=== PATIENT | male | born 1950 | race Caucasian/White ===

== ENCOUNTER 2022-09-29 14:03 | Inpatient (IN) ==
--- NOTE | 2022-09-29 14:35 | Emergency Department Note ---
Impression & Plan Hypoxia, Fluid overload, Elevated troponin I level, Hyponatremia ED Provider Note Provider: Donn Brewster MD DATE OF SERVICE: 09/29/2022 CHIEF COMPLAINT: Leg swelling HISTORY OF PRESENT ILLNESS: Patient is a 72-year-old gentleman presenting with family today reporting swelling of his legs up into his abdomen and chest as well as shortness of breath with ambulating. He states that he is not able to walk today. States this is been developing over days to weeks at least. No trauma or falls reported. States he has pain where the swelling is but denies significant chest pain. No fever or cold symptoms reported. Patient is a smoker. Patient has not seen a doctor in more than a decade and denies any known medical problems or current medications. Patient states he does drink some alcohol daily. Denies history of withdrawal. REVIEW OF SYSTEMS: A total of 10 review of systems was obtained and negative except as stated above in the HPI. 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 NECK: Trachea midline. Supple. ENT: Mucous membranes moist and slightly purple in nature. LUNGS: Airway patent. No retractions. Breath sounds clear with good air entry bilaterally. HEART: Regular rate and rhythm. No chest wall tenderness ABDOMEN: Soft and non-tender, without guarding or rebound. Also some mild abdominal wall edema noted without appreciable fluid wave. SKIN: Warm dry with some scaling plaques in the bilateral feet without significant erythema. There are some slight mottling of the distended swollen skin across the knee area bilaterally. EXTREMITIES: 3-4+ edema from the bilateral feet extending towards the abdomen. NEUROLOGICAL: No focal deficits. No aphasia. No facial droop or slurred speech. EK bpm sinus tachycardia. No PVC or PAC. Right axis with an incomplete right bundle branch block is noted. No acute ST segment elevation with some inferior lateral T wave ST changes. CONTINUOUS CARDIAC MONITORING: was ordered and showed a heart rate of 80s-90s bpm in normal sinus rhythm Patient's laboratory studies and imaging reviewed. Differential includes Infection, dehydration, metabolic abnormality, hypo/hyperglycemia, electrolyte disturbance, anemia, hypoxia, cardiac sources, intracerebral event, toxicologic, neurologic, as well as other pathologies. IMPRESSION/MEDICAL DECISION MAKING: Patient has not seen a doctor in many years and now with significant swelling of the lower extremities into the abdomen as well as noted hypoxia. Given oxygen supplementation at 6L with unchanged mild chronic cough. Shortness of breath and the swelling is concerning for the onset of fluid overload. Question whether this is heart related versus liver related or lower likelihood renally related. Labs will be completed as well as x-ray. Lower suspicion for infectious source at this time. No trauma history or syncope. Symmetric swelling and generalized edema seems very atypical and I have a lower suspicion for PE at this point. Chest x-ray per radiology report shows some pulmonary edema and questions are right airspace opacity. Again not having significant infectious symptoms such as fever and question of his more asymmetric pulmonary edema. As such we will defer any antibiotics. Blood work without significant anemia, thrombocytopenia, or leukocytosis. Patient does have evidence of some hyponatremia of 127. INR 1.3 with a bilirubin of 1.3, AST of 23, and ALT of 11. Do not believe this represents acute hepatitis or liver failure. Albumin normal at 3.5. The hyponatremia with a severely elevated BNP and his clinical presentation seems consistent likely with heart failure and cardiac fluid overload. No evidence of acute STEMI not having active chest pain and low suspicion at this point for acu te NM. Mild troponin elevation likely more demand or could be indicative of past event. Given some Lasix here. Stable renal function with a creatinine of 1.08. Discussed with patient and family at bedside recommend further care here at the hospital given his hypoxia for diuresis and further cardiac evaluation. DIAGNOSIS: Hypoxia, fluid overload, hyponatremia, elevated troponin DISPOSITION: Hospitalist will evaluate Patient was agreeable with this plan. Critical Care I have personally spent 34 minutes of critical care time in the direct management of this patient. This includes bedside care, interpretation of diagnostic studies, and testing, discussion with consultants, patient, and family members, and other required patient management activities. These 34 minutes is in excess of all separately billable procedures. Past Med/Surg History Medical History No known health problems Surgical History No history of previous surgery Social History Smoking Status: Current every day smoker Hx Alcohol Use: Yes Hx Substance Use: No Preferred Language: Indonesian Communication Ability: Effective Architectural Designer Required: No Beliefs That Will Affect Care: None Current Living Situation: Family Current Living Situation Comment: lives with brother Feels Safe at Home: Yes Safety Concerns: Feels Safe At This Time Assistive Devices: Glasses Allergies Allergies Allergy/AdvReac Type Severity Reaction Status Date / Time bee venom protein (honey bee) Allergy Hives Unverified 09/29/22 15:30 onion Allergy Unknown Unverified 09/29/22 15:30 Home Meds Home Medications Medication Instructions Recorded Confirmed No Known Home Medications 09/29/22 09/29/22 Results & Data (ED) Vital Signs Vital Signs - 24 hr 09/29/22 14:08 09/29/22 14:21 09/29/22 14:22 Temperature 36.8 C Temperature Source Temporal Artery Scan Pulse Rate 105 H 101 H Pulse Rate from SpO2 Sensor 99 H Respiratory Rate 16 26 H Respiratory Effort / Characteristics Non-Labored Respiratory Depth Normal Blood Pressure 125/85 143/98 H Blood Pressure Mean 98 113 Pulse Oximetry 77 L 91 Oxygen Delivery Method Room Air Nasal Cannula Oxygen Flow Rate 5 Sepsis Recent Fever Within 48 Hours No Sepsis New/Unexplained Change in Mental Status No Sepsis Action Taken by Nursing No Action Required 09/29/22 14:22 09/29/22 14:30 09/29/22 14:30 Temperature Temperature Source Pulse Rate 99 H 99 H Pulse Rate from SpO2 Sensor 99 H 99 H Respiratory Rate 25 H 28 H Respiratory Effort / Characteristics Respiratory Depth Blood Pressure 131/88 Blood Pressure Mean 102 Pulse Oximetry 94 96 Oxygen Delivery Method Nasal Cannula Nasal Cannula Oxygen Flow Rate 5 5 Sepsis Recent Fever Within 48 Hours Sepsis New/Unexplained Change in Mental Status Sepsis Action Taken by Nursing 09/29/22 15:00 09/29/22 15:00 09/29/22 15:30 Temperature Temperature Source Pulse Rate 91 H Pulse Rate from SpO2 Sensor 90 Respiratory Rate 27 H Respiratory Effort / Characteristics Respiratory Depth Blood Pressure 130/91 128/90 Blood Pressure Mean 104 102 Pulse Oximetry 100 Oxygen Delivery Method Nasal Cannula Oxygen Flow Rate 5 Sepsis Recent Fever Within 48 Hours Sepsis New/Unexplained Change in Mental Status Sepsis Action Taken by Nursing 09/29/22 15:30 Temperature Temperature Source Pulse Rate 88 Pulse Rate from SpO2 Sensor 88 Respiratory Rate 10 L Respiratory Effort / Characteristics Respiratory Depth Blood Pressure Blood Pressure Mean Pulse Oximetry 95 Oxygen Delivery Method Nasal Cannula Oxygen Flow Rate 5 Sepsis Recent Fever Within 48 Hours Sepsis New/Unexplained Change in Mental Status Sepsis Action Taken by Nursing Laboratory Data Result diagrams: 09/29/22 14:41 09/29/22 19:32 Lab Results 09/29/22 09/29/22 09/29/22 Range/Units 14:41 14:41 14:41 WBC 6.61 (4.8-10.8) K/ul RBC 4.67 (4.63-6.08) M/uL Hgb 16.6 (14.0-18.0) g/dl Hct 47.6 (40.1-51.0) % MCV 101.9 H (80.0-100.0) fL MCH 35.5 H (25.0-34.0) pg MCHC 34.9 (32.0-36.0) g/dL RDW Std Deviation 53.9 H (36.4-46.3) fL RDW Coeff of Gail 14.6 H (11.5-14.5) % Plt Count 139 (130-400) K/uL MPV 11.8 (9.4-12.4) fL Immature Gran % (Auto) 0.3 % Neut % (Auto) 74.4 % Lymph % (Auto) 12.6 % Iron % (Auto) 11.0 % Eos % (Auto) 0.5 % Baso % (Auto) 1.2 % Neut # (Auto) 4.92 (1.4-6.5) K/uL Lymph # (Auto) 0.83 L (1.2-3.4) K/uL Iron # (Auto) 0.73 (0.24-0.82) K/uL Eos # (Auto) 0.03 (0-0.50) K/uL Baso # (Auto) 0.08 (0-0.2) K/uL Immature Gran # (Auto) 0.02 (0.00-0.02) K/uL PT 13.6 H (9.0-12.0) Seconds INR 1.3 H (0.9-1.1) Sodium 127 L (136-145) mmol/L Potassium 4.7 (3.5-5.1) mmol/L Chloride 91 L (98-107) mmol/L Carbon Dioxide 28 (21-32) mmol/L Anion Gap 8 (3-11) BUN 18 (6-23) mg/dl Creatinine 1.08 (0.6-1.4) mg/dl Est Cr Clr Drug Dosing Not Reportable Est GFR ( Amer) 79.6 ml/min Est GFR (Non-Af Amer) 68.7 ml/min BUN/Creatinine Ratio 16.7 (10-20) Glucose 123 H (70-99(Fasting)) mg/dl Lactate (0.4-2.0) mmol/L Calcium 9.6 (8.5-10.1) mg/dl Magnesium 1.9 (1.7-2.4) mg/dl Total Bilirubin 1.3 H (0.2-1.0) mg/dl AST 23 (13-39) U/L ALT 11 (7-52) U/L Alkaline Phosphatase 83 (34-104) U/L Troponin I High Sens 88.4 H* (0-20) pg/ml B-Natriuretic Peptide (0-100) pg/ml Total Protein 8.1 (6.0-8.3) gm/dl Albumin 3.5 (3.4-5.0) gm/dl Globulin 4.6 H (2.5-4.0) gm/dl Albumin/Globulin Ratio 0.8 L (0.9-2) TSH (0.300-4.500) uIu/ml Ethyl Alcohol mg/dL (<10.0) mg/dl SARS-CoV-2, RNA, NAAT (NEGATIVE) 09/29/22 09/29/22 09/29/22 Range/Units 14:41 14:41 14:41 WBC (4.8-10.8) K/ul RBC (4.63-6.08) M/uL Hgb (14.0-18.0) g/dl Hct (40.1-51.0) % MCV (80.0-100.0) fL MCH (25.0-34.0) pg MCHC (32.0-36.0) g/dL RDW Std Deviation (36.4-46.3) fL RDW Coeff of Gail (11.5-14.5) % Plt Count (130-400) K/uL MPV (9.4-12.4) fL Immature Gran % (Auto) % Neut % (Auto) % Lymph % (Auto) % Iron % (Auto) % Eos % (Auto) % Baso % (Auto) % Neut # (Auto) (1.4-6.5) K/uL Lymph # (Auto) (1.2-3.4) K/uL Iron # (Auto) (0.24-0.82) K/uL Eos # (Auto) (0-0.50) K/uL Baso # (Auto) (0-0.2) K/uL Immature Gran # (Auto) (0.00-0.02) K/uL PT (9.0-12.0) Seconds INR (0.9-1.1) Sodium (136-145) mmol/L Potassium (3.5-5.1) mmol/L Chloride (98-107) mmol/L Carbon Dioxide (21-32) mmol/L Anion Gap (3-11) BUN (6-23) mg/dl Creatinine (0.6-1.4) mg/dl Est Cr Clr Drug Dosing Est GFR ( Amer) ml/min Est GFR (Non-Af Amer) ml/min BUN/Creatinine Ratio (10-20) Glucose (70-99(Fasting)) mg/dl Lactate 1.9 (0.4-2.0) mmol/L Calcium (8.5-10.1) mg/dl Magnesium (1.7-2.4) mg/dl Total Bilirubin (0.2-1.0) mg/dl AST (13-39) U/L ALT (7-52) U/L Alkaline Phosphatase (34-104) U/L Troponin I High Sens (0-20) pg/ml B-Natriuretic Peptide (0-100) pg/ml Total Protein (6.0-8.3) gm/dl Albumin (3.4-5.0) gm/dl Globulin (2.5-4.0) gm/dl Albumin/Globulin Ratio (0.9-2) TSH 3.831 (0.300-4.500) uIu/ml Ethyl Alcohol mg/dL < 10.0 (<10.0) mg/dl SARS-CoV-2, RNA, NAAT (NEGATIVE) 09/29/22 09/29/22 Range/Units 14:41 14:52 WBC (4.8-10.8) K/ul RBC (4.63-6.08) M/uL Hgb (14.0-18.0) g/dl Hct (40.1-51.0) % MCV (80.0-100.0) fL MCH (25.0-34.0) pg MCHC (32.0-36.0) g/dL RDW Std Deviation (36.4-46.3) fL RDW Coeff of Gail (11.5-14.5) % Plt Count (130-400) K/uL MPV (9.4-12.4) fL Immature Gran % (Auto) % Neut % (Auto) % Lymph % (Auto) % Iron % (Auto) % Eos % (Auto) % Baso % (Auto) % Neut # (Auto) (1.4-6.5) K/uL Lymph # (Auto) (1.2-3.4) K/uL Iron # (Auto) (0.24-0.82) K/uL Eos # (Auto) (0-0.50) K/uL Baso # (Auto) (0-0.2) K/uL Immature Gran # (Auto) (0.00-0.02) K/uL PT (9.0-12.0) Seconds INR (0.9-1.1) Sodium (136-145) mmol/L Potassium (3.5-5.1) mmol/L Chloride (98-107) mmol/L Carbon Dioxide (21-32) mmol/L Anion Gap (3-11) BUN (6-23) mg/dl Creatinine (0.6-1.4) mg/dl Est Cr Clr Drug Dosing Est GFR ( Amer) ml/min Est GFR (Non-Af Amer) ml/min BUN/Creatinine Ratio (10-20) Glucose (70-99(Fasting)) mg/dl Lactate (0.4-2.0) mmol/L Calcium (8.5-10.1) mg/dl Magnesium (1.7-2.4) mg/dl Total Bilirubin (0.2-1.0) mg/dl AST (13-39) U/L ALT (7-52) U/L Alkaline Phosphatase (34-104) U/L Troponin I High Sens (0-20) pg/ml B-Natriuretic Peptide 1989 H (0-100) pg/ml Total Protein (6.0-8.3) gm/dl Albumin (3.4-5.0) gm/dl Globulin (2.5-4.0) gm/dl Albumin/Globulin Ratio (0.9-2) TSH (0.300-4.500) uIu/ml Ethyl Alcohol mg/dL (<10.0) mg/dl SARS-CoV-2, RNA, NAAT NEGATIVE (NEGATIVE) Administered Medications Furosemide (Furosemide 40 Mg/4 Ml Vial) 40 mg IV BID SAL Stop: 10/29/22 20:59 Last Admin: 09/29/22 20:25 Dose: 40 mg Documented By: KJS Discontinued Medications Furosemide (Furosemide 40 Mg/4 Ml Vial) 40 mg IV ONE ONE Stop: 09/29/22 15:23 Last Admin: 09/29/22 16:08 Dose: 40 mg Documented By: [id number] Imaging Data Radiologist's Impression: Chest X-Ray 09/29/22 14:22 XR chest 1V portable CLINICAL HISTORY: swelling, donaldson TECHNIQUE: Single frontal radiograph of the chest was obtained. Comparison: Comparison is made to chest radiograph 09/29/2022 FINDINGS: No lines and tubes are seen. Calcified aortic knob is seen with likely cardiomegaly. Prominence and cephalization of the vasculature is seen. Airspace opacity is seen in the right lung. Bilateral small pleural effusions are seen. Small bilateral pleural effusions are seen. IMPRESSION: 1. Right airspace opacity may represent atelectasis, pneumonia, and/or aspiration. 2. Small bilateral pleural effusions. 3. Mild pulmonary edema and cardiomegaly.. ACT 112: Negative or not required by law. Electronically signed by: Juan Koehler M.D. 09/29/2022 2:55 PM Discharge Plan Visit Data Chief Complaint: Swelling/Edema to Extremity Stated Complaint: EXTREME SWELLING, UNABLE TO WALK ED Provider: Donn Brewster Discharge Problem: Hypoxia, Fluid overload, Elevated troponin I level, Hyponatremia Patient Disposition: Admitted As Inpatient Discharge Instructions Interventions: ED Discharge Assessment Last Done: 09/29/22 18:31 : Fluid overload Qualifiers: Hypervolemia type: unspecified Qualified Code(s): E87.70 - Fluid overload, unspecified
[2022-09-29 14:54] LABS: Basophils # (auto) 0.08 K/uL (0-0.2); Basophils % (auto) 1.2 %; Eosinophils # (auto) 0.03 K/uL (0-0.50); Eosinophils % (auto) 0.5 %; Hematocrit (blood only) 47.6 % (40.1-51.0); Hemoglobin 16.6 g/dl (14.0-18.0); Immature Granulocytes # (auto) 0.02 K/uL (0.00-0.02); Immature Granulocytes % (auto) 0.3 %; Lymphocytes # (auto) 0.83 K/uL (1.2-3.4); Lymphocytes % (auto) 12.6 %; Mean Corpuscular Hemoglobin 35.5 pg (25.0-34.0); Mean Corpuscular Hgb Conc 34.9 g/dL (32.0-36.0); Mean Corpuscular Volume 101.9 fL (80.0-100.0); Mean Platelet Volume 11.8 fL (9.4-12.4); Monocytes # (auto) 0.73 K/uL (0.24-0.82); Neutrophils # (auto) 4.92 K/uL (1.4-6.5); Neutrophils % (auto) 74.4 %; Platelet Count 139 K/uL (130-400); RDW Coefficient of Variation 14.6 % (11.5-14.5); RDW Standard Deviation 53.9 fL (36.4-46.3); Red Blood Count 4.67 M/uL (4.63-6.08); White Blood Count 6.61 K/ul (4.8-10.8)
--- NOTE | 2022-09-29 14:57 | XRay Report ---
XR chest 1V portable CLINICAL HISTORY: swelling, donaldson TECHNIQUE: Single frontal radiograph of the chest was obtained. Comparison: Comparison is made to chest radiograph 09/29/2022 FINDINGS: No lines and tubes are seen. Calcified aortic knob is seen with likely cardiomegaly. Prominence and c ephalization of the vasculature is seen. Airspace opacity is seen in the right lung. Bilateral small pleural effusions are seen. Small bilateral pleural effusions are seen. IMPRESSION: 1. Right airspace opacity may represent atelectasis, pneumonia, and/or aspiration. 2. Small bilateral pleural effusions. 3. Mild pulmonary edema and cardiomegaly.. ACT 112: Negative or not required by law. Electronically signed by: Juan Koehler M.D. 09/29/2022 2:55 PM
[2022-09-29 15:09] LABS: INR 1.3 (0.9-1.1); Prothrombin Time 13.6 Seconds (9.0-12.0)
[2022-09-29 15:20] LABS: Alanine Aminotransferase 11 U/L (7-52); Albumin Globulin Ratio 0.8 (0.9-2); Albumin Level 3.5 gm/dl (3.4-5.0); Alkaline Phosphatase 83 U/L (34-104); Anion Gap 8 (3-11); Aspartate Aminotransferase 23 U/L (13-39); BUN Creatinine Ratio 16.7 (10-20); Bilirubin,Total 1.3 mg/dl (0.2-1.0); Blood Urea Nitrogen 18 mg/dl (6-23); Calcium 9.6 mg/dl (8.5-10.1); Carbon Dioxide 28 mmol/L (21-32); Chloride 91 mmol/L (98-107); Est GFR (African American) 79.6 ml/min; Est GFR (Non-African American) 68.7 ml/min; Globulin 4.6 gm/dl (2.5-4.0); Glucose 123 mg/dl (70-99(Fasting)); Magnesium 1.9 mg/dl (1.7-2.4); Potassium 4.7 mmol/L (3.5-5.1); Sodium 127 mmol/L (136-145); Total Protein 8.1 gm/dl (6.0-8.3)
[2022-09-29] MEDS ORDERED: FUROSEMIDE 40 MG/4 ML VIAL IV ONE (15:22)
[2022-09-29 15:30] LABS: Troponin I High Sensitivity 88.4 pg/ml (0-20)
--- NOTE | 2022-09-29 15:45 | History & Physical Report ---
Date of Service September 29, 2022 Assessment & Plan (1) Hyponatremia: Plan: Patient admited with fluid overload and hyponatremia. Hypervolemic hyponatremia Perhaps beer potomania playing a role Will monitor sodium, diurese with lasix. Will ordered RUQ U/S to assess liver, will recheck LFTs will order echo Has signs of liver injury given his elevated INR: 1.3 and eleavted Bilirubin Does not require prednisolone at this moment. (2) Fluid overload: Plan: as above, diurese with lasix may consider adding spironolactone given likely chronic liver injury. (3) Elevated troponin I level: Plan: demand ischemia will monitor (4) Hypoxia: Plan: supplemental oxygen ordered (5) Rash: Plan: likely nrowegian scabies will order permethrin cream and monitor (6) Alcoholism: Plan: will consider adding AWSS if patient is deciding to quit drinking. Will defer to AM team (7) Nicotine addiction: Plan: will order 14 mg of nicotine patch History of Present Illness Chief Complaint: lower extremity edema Primary Care Provider: Donn Brewster This is a pleasant 74 yo male who is an alcoholic. Patient has not seen a provider for almost 10 years. Patient has Past social history of: drinking 6 cans of beer every day for past 15 days without stopping. He reports prior to this, he has been able to stop without going through withdrawal. Patient also reports having a over 50 pack year history of smoking cigarettes. Patient states his brother of alcoholic cirrhosis. Patient arrives to the hospital as he noticed worsening of his lower extremity edema with SOB. Allergies Allergy/AdvReac Type Severity Reaction Status Date / Time bee venom protein (honey bee) Allergy Hives Unverified 09/29/22 15:30 onion Allergy Unknown Unverified 09/29/22 15:30 Home Medications Medication Instructions Recorded Confirmed Type No Known Home Medications 09/29/22 09/29/22 History Past Med/Surg History Medical History No known health problems Surgical History No history of previous surgery Social History Smoking Status: Current every day smoker Hx Alcohol Use: Yes Hx Substance Use: No Preferred Language: Syriac Communication Ability: Effective Jacquard Plate Maker Required: No Beliefs That Will Affect Care: None Current Living Situation: Family Current Living Situation Comment: lives with brother Feels Safe at Home: Yes Safety Concerns: Feels Safe At This Time Assistive Devices: Glasses Review of Systems Constitutional: no fever and no body aches Eyes: no blind spots Ear, Nose, Mouth, Throat: no ear pain Respiratory: + dyspnea and + dyspnea on exertion Cardiovascular: + dyspnea; no chest pain Gastrointestinal: + bloating Genitourinary: no dysuria Musculoskeletal: no back pain Integumentary: + rash (on feet) Neurologic: no gait abnormality Psychiatric: no behavioral changes Endocrine: + fatigue Hematologic / Lymphatic: no easy bleeding Allergy / Immunological: no GI upset with certain foods Physical Exam Constitutional: + disheveled Eyes: PERRL, conjunctivae normal, anicteric sclerae ENMT: external ear and nose normal, oropharynx normal Neck: trachea midline, no thyromegaly Respiratory: Auscultation: + crackles (at bases) Cardiovascular: RRR, no murmur, no edema Gastrointestinal (Abdomen): normal bowel sounds, soft, nontender, no hepatosplenomegaly Musculoskeletal: no cyanosis or clubbing, extremities motor strength 5/5 Skin: + lesion (on feet: scaly, vera, greenish small plaques with papules on feet,) Neurologic: PERRL, EOMI, accommodation nl, no face palsy, no dysarthria Psychiatric: A+Ox3, euthymic affect Lymphatic: no cervical or axillary lymphadenopathy Results & Data Results & Data ([facility]) Vital Signs (Past 12 Hours) Vital Signs Temp Pulse Resp BP Pulse Ox O2 Del Method 09/29/22 14:08 36.8 C 105 H 16 125/85 77 L Room Air PG Care Time/CCT Total # of Minutes Spent Total Time Spent with Patient: Total time spent is greater than 50% in coordination of care (as documented) at patient's floor/unit and/or counseling patient: Coding Level of Care Code 29686 Initial Inpt Care Lvl 3 Diagnoses Hyponatremia E87.1 Fluid overload E87.70 Hypervolemia type: unspecified Elevated troponin I level R77.8 Hypoxia R09.02 Rash R21 Alcoholism F10.20 Nicotine addiction F17.200 (1) Fluid overload Hypervolemia type: unspecified Qualified Code(s): E87.70 - Fluid overload, unspecified
[2022-09-29 17:26] LABS: Appearance Urine Clear (Clear); Bilirubin Urine Negative (Negative); Blood Urine Negative (Negative); Color Urine Yellow; Glucose Urine UA Negative (Negative); Ketones Urine Negative (Negative); Leukocyte Esterase Urine Negative (Negative); Nitrite Urine Negative (Negative); Protein Urine Negative (Negative); Urobilinogen Urine Negative (Negative); pH Urine 5.5 (4.5-7.5)
[2022-09-29 20:00] LABS: BUN Creatinine Ratio 16.7 (10-20); Calcium 9.3 mg/dl (8.5-10.1); Creatinine Clr Calc Pharmacy 70.7 ml/min; Est GFR (African American) 85.3 ml/min; Est GFR (Non-African American) 73.6 ml/min; Potassium 4.9 mmol/L (3.5-5.1)
[2022-09-29] MEDS: FUROSEMIDE 40 MG/4 ML VIAL IV SCH (20:25)
[2022-09-30 06:26] LABS: BUN Creatinine Ratio 18.8 (10-20); Calcium 8.9 mg/dl (8.5-10.1); Creatinine Clr Calc Pharmacy 84.9 ml/min; Est GFR (African American) 101.6 ml/min; Est GFR (Non-African American) 87.7 ml/min; Potassium 4.3 mmol/L (3.5-5.1); Troponin I High Sensitivity 74.7 pg/ml (0-20)
[2022-09-30 07:25] LABS: Hematocrit (blood only) 43.7 % (40.1-51.0); Hemoglobin 15.2 g/dl (14.0-18.0); Mean Corpuscular Hemoglobin 35.2 pg (25.0-34.0); Mean Corpuscular Hgb Conc 34.8 g/dL (32.0-36.0); Mean Corpuscular Volume 101.2 fL (80.0-100.0); Mean Platelet Volume 11.9 fL (9.4-12.4); Platelet Count 121 K/uL (130-400); RDW Coefficient of Variation 14.3 % (11.5-14.5); RDW Standard Deviation 53.2 fL (36.4-46.3); Red Blood Count 4.32 M/uL (4.63-6.08); White Blood Count 6.66 K/ul (4.8-10.8)
[2022-09-30 07:49] LABS: INR 1.3 (0.9-1.1)
[2022-09-30 08:01] LABS: Albumin Globulin Ratio 0.8 (0.9-2); Albumin Level 2.8 gm/dl (3.4-5.0); Bilirubin,Total 1.1 mg/dl (0.2-1.0); Calcium 8.9 mg/dl (8.5-10.1); Est GFR (African American) 100.2 ml/min; Est GFR (Non-African American) 86.4 ml/min; Globulin 3.5 gm/dl (2.5-4.0); Potassium 4.5 mmol/L (3.5-5.1); Total Protein 6.3 gm/dl (6.0-8.3)
[2022-09-30] MEDS: PERMETHRIN 5% CR 60 GM TUBE EXT SCH (09:14)
[2022-09-30] MEDS: NICOTINE 14 MG/24 HR PATCH TD SCH (09:14)
[2022-09-30] MEDS: FUROSEMIDE 40 MG/4 ML VIAL IV SCH ×2 (09:19→19:11)
[2022-09-30] MEDS: HEPARIN SOD 5,000 UNIT/0.5 ML VIAL SQ SCH ×2 (09:21→19:11)
--- NOTE | 2022-09-30 12:15 | Ultrasound Report ---
US liver CLINICAL HISTORY: chronic alcoholism/edema COMPARISON STUDY: No previous studies for comparison. FINDINGS: There is coarsening of hepatic echotexture and nodularity of the liver surface. Main portal vein is patent. No hepatic lesions are identified although this exam is compromised by suboptimal pe netration. There is mild dilatation of the common bile duct, measuring 8 mm. No gallstones are noted. No sonographic Jackson sign was reported. Pancreatic body is normal. Head and tail are obscured. Ther e is no right hydronephrosis. Small right pleural effusion is incidentally noted. IMPRESSION: 1. No gallstones. Gallbladder wall thickening, a nonspecific finding the setting of cirrhosis. 2. Coarsening of hepatic echotexture and nodularity of the liver surface suggestive of cirrhosis. 3. Mild dilatation of the common bile duct which be correlated with liver function tests. 4. Small right pleural effusion. ACT 112: Negative or not required by law. Electronically signed by: Corey Madrid M.D. 09/30/2022 12:13 PM
--- NOTE | 2022-09-30 13:45 | Electrocardiogram Report ---
Test Reason : Blood Pressure : / mmHG Vent. Rate : 103 BPM Atrial Rate : 103 BPM P-R Int : 190 ms QRS Dur : 092 ms QT Int : 340 ms P-R-T Axes : 059 113 -22 degrees QTc Int : 445 ms Sinus tachycardia Left posterior fascicular block Incomplete right bundle branch block Possible Right ventricular hypertrophy Nonspecific ST and T wave abnormality Abnormal ECG No previous ECGs available Confirmed by Rodger Hobbs ([id number]) on 09/30/2022 1:45:41 PM Referred By: Confirmed By:Rodger Hobbs
[2022-09-30] MEDS ORDERED: LORazepam 1 MG TAB PO PRN (20:55)
--- NOTE | 2022-09-30 21:03 | Hospitalist Progress Note ---
Date of Service September 30, 2022 Assessment & Plan (1) Hyponatremia: Plan: Patient admited with fluid overload and hyponatremia. Hypervolemic hyponatremia serum sodium is improved from 129 to 131 with diuresis Continue loop diuretics and monitor serum sodium along with electrolytes daily Has signs of liver injury given his elevated INR: 1.3 Does not require prednisolone at this moment. Will start patient on alcohol withdrawal protocol with close monitoring for w ithdrawal symptoms (2) Fluid overload: Plan: as above, diurese with lasix Serum potassium level 4.5 Given underlying liver failure consider adding Aldactone to Lasix once potassium levels stabilize. (3) Elevated troponin I level: Plan: demand ischemia No evidence of ongoing ischemia noted Patient presents with elevated proBNP over 1800 (4) Hypoxia: Plan: supplemental oxygen ordered (5) Rash: Plan: Placed on permethrin cream for suspected [place] scabies (6) Alcoholism: Plan: Patient placed on alcohol withdrawal protocol with folic acid and thiamine supplementation (7) Nicotine addiction: Plan: will order 14 mg of nicotine patch Admission and Anticipated Discharge Date Admission Date: September 29, 2022 Subjective Patient denies any acute complaints No chest pain patient reports that his breathing has improved since admission Physical Exam Physical Exam: Head and ENT no thyroid enlargement Cardiovascular S1-S2 are normal no S3 Lungs bilateral air entry decreased at bases scattered rhonchi Abdomen soft nondistended positive bowel sounds no rebound tenderness Extremity shows 1+ edema Neurologically no focal deficits Skin shows no rash no cyanosis Results & Data Results & Data ([facility]) Vital Signs (Past 12 Hours) Vital Signs Temp Pulse Pulse Resp BP Pulse Ox O2 Del Method 09/30/22 20:31 Nasal Cannula 09/30/22 19:23 36.6 C 81 18 113/76 95 Nasal Cannula 09/30/22 15:00 85 09/30/22 15:30 36.3 C L 80 19 127/82 96 Nasal Cannula 09/30/22 12:08 36.8 C 88 18 102/66 95 Nasal Cannula 09/30/22 09:13 86 101/70 O2 Flow Rate 09/30/22 20:31 2 09/30/22 19:23 09/30/22 15:00 09/30/22 15:30 5.0 09/30/22 12:08 5.0 09/30/22 09:13 Laboratory Results Short CBC 09/30/22 Range/Units 07:00 WBC 6.66 (4.8-10.8) K/ul Hgb 15.2 (14.0-18.0) g/dl Hct 43.7 (40.1-51.0) % Plt Count 121 L (130-400) K/uL BMP 09/30/22 09/30/22 04:31 07:00 Sodium 130 L 131 L Potassium 4.3 4.5 Chloride 91 L 91 L Carbon Dioxide 33 H 37 H BUN 16 15 Creatinine 0.85 0.88 Glucose 94 94 Calcium 8.9 8.9 Liver Function 09/30/22 Range/Units 07:00 Total Bilirubin 1.1 H (0.2-1.0) mg/dl AST 20 (13-39) U/L ALT 9 (7-52) U/L Alkaline Phosphatase 67 (34-104) U/L Albumin 2.8 L (3.4-5.0) gm/dl Diagnostic Findings Chest X-Ray 09/29/22 14:22 XR chest 1V portable CLINICAL HISTORY: swelling, donaldson TECHNIQUE: Single frontal radiograph of the chest was obtained. Comparison: Comparison is made to chest radiograph 09/29/2022 FINDINGS: No lines and tubes are seen. Calcified aortic knob is seen with likely cardiomegaly. Prominence and cephalization of the vasculature is seen. Airspace opacity is seen in the right lung. Bilateral small pleural effusions are seen. Small bilateral pleural effusions are seen. IMPRESSION: 1. Right airspace opacity may represent atelectasis, pneumonia, and/or aspiration. 2. Small bilateral pleural effusions. 3. Mild pulmonary edema and cardiomegaly.. ACT 112: Negative or not required by law. Electronically signed by: Juan Koehler M.D. 09/29/2022 2:55 PM Liver Ultrasound 09/30/22 06:45 US liver CLINICAL HISTORY: chronic alcoholism/edema COMPARISON STUDY: No previous studies for comparison. FINDINGS: There is coarsening of hepatic echotexture and nodularity of the liver surface. Main portal vein is patent. No hepatic lesions are identified although this exam is compromised by suboptimal penetration. There is mild dilatation of the common bile duct, measuring 8 mm. No gallstones are noted. No sonographic Jackson sign was reported. Pancreatic body is normal. Head and tail are obscured. There is no right hydronephrosis. Small right pleural effusion is incidentally noted. IMPRESSION: 1. No gallstones. Gallbladder wall thickening, a nonspecific finding the setting of cirrhosis. 2. Coarsening of hepatic echotexture and nodularity of the liver surface suggestive of cirrhosis. 3. Mild dilatation of the common bile duct which be correlated with liver function tests. 4. Small right pleural effusion. ACT 112: Negative or not required by law. Electronically signed by: Corey Madrid M.D. 09/30/2022 12:13 PM PG Care Time/CCT Total # of Minutes Spent Total Time Spent with Patient: Total time spent is greater than 50% in coordination of care (as documented) at patient's floor/unit and/or counseling patient: Coding Level of Care Code 44294 Subseq Hosp Care Lvl 2 Diagnoses Hyponatremia E87.1 Fluid overload E87.70 Hypervolemia type: unspecified Elevated troponin I level R77.8 Hypoxia R09.02 Rash R21 Alcoholism F10.20 Nicotine addiction F17.200 (1) Fluid overload Hypervolemia type: unspecified Qualified Code(s): E87.70 - Fluid overload, unspecified
[2022-10-01 06:59] LABS: Albumin Globulin Ratio 0.8 (0.9-2); Albumin Level 2.9 gm/dl (3.4-5.0); BUN Creatinine Ratio 19.2 (10-20); Bilirubin,Total 1.1 mg/dl (0.2-1.0); Calcium 8.8 mg/dl (8.5-10.1); Creatinine Clr Calc Pharmacy 89.7 ml/min; Est GFR (African American) 105.3 ml/min; Est GFR (Non-African American) 90.8 ml/min; Globulin 3.8 gm/dl (2.5-4.0); Total Protein 6.7 gm/dl (6.0-8.3)
[2022-10-01 07:02] LABS: Hematocrit (blood only) 44.9 % (40.1-51.0); Hemoglobin 15.5 g/dl (14.0-18.0); Mean Corpuscular Hemoglobin 35.1 pg (25.0-34.0); Mean Corpuscular Hgb Conc 34.5 g/dL (32.0-36.0); Mean Corpuscular Volume 101.8 fL (80.0-100.0); Mean Platelet Volume 11.6 fL (9.4-12.4); Platelet Count 129 K/uL (130-400); RDW Coefficient of Variation 13.7 % (11.5-14.5); RDW Standard Deviation 51.7 fL (36.4-46.3); Red Blood Count 4.41 M/uL (4.63-6.08); White Blood Count 6.68 K/ul (4.8-10.8)
[2022-10-01] MEDS: FOLIC ACID 1 MG TAB PO SCH (08:30)
[2022-10-01] MEDS: NICOTINE 14 MG/24 HR PATCH TD SCH (08:30)
[2022-10-01] MEDS: THIAMINE HCL 100 MG TAB PO SCH (08:30)
[2022-10-01] MEDS: PERMETHRIN 5% CR 60 GM TUBE EXT SCH (08:30)
[2022-10-01] MEDS: HEPARIN SOD 5,000 UNIT/0.5 ML VIAL SQ SCH ×2 (08:31→20:42)
[2022-10-01] MEDS: FUROSEMIDE 40 MG/4 ML VIAL IV SCH (08:36)
[2022-10-01] MEDS ORDERED: IVERMECTIN 3 MG TABLET PO SCH (12:00)
[2022-10-01] MEDS: SPIRONOLACTONE 100 MG TAB PO SCH (18:21)
[2022-10-01] MEDS ORDERED: PERMETHRIN 5% CR 60 GM TUBE EXT SCH (21:00)
--- NOTE | 2022-10-01 21:09 | Hospitalist Progress Note ---
Date of Service October 01, 2022 Assessment & Plan (1) Hyponatremia: Plan: Patient admited with fluid overload and hyponatremia. Hypervolemic hyponatremia serum sodium is improved from 129 to 132 with diuresis Continue loop diuretics and monitor serum sodium along with electrolytes daily Has signs of liver injury given his elevated INR: 1.3 Does not require prednisolone at this moment. Patient on alcohol withdrawal protocol with close monitoring for withdrawal s ymptoms will continue to monitor, patient remains over 2 liters negative per day. will add spironolactone on 10/01 (2) Alcoholic cirrhosis: Plan: Given extensive alcohol use, elevated INR, elevated bilirubin. will consult GI to establish patient and determine need for upper endoscopy to assess for varices. (3) Fluid overload: Plan: as above, diurese with lasix added spirinolactone with lasix on 10/01/22 (4) Elevated troponin I level: Plan: demand ischemia No evidence of ongoing ischemia noted Patient presents with elevated proBNP over 1800 (5) Hypoxia: Plan: supplemental oxygen ordered (6) Rash: Plan: Concern over scabies, discussed with podiatry. 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 Patient no longer needs to be on precautions. consulted podiatry for further assistance (7) Nicotine addiction: Plan: will order 14 mg of nicotine patch (8) Alcoholism: Plan: Patient placed on alcohol withdrawal protocol with folic acid and thiamine supplementation Admission and Anticipated Discharge Date Admission Date: September 29, 2022 Subjective 72 yo male reports feeling better. He reports having less lower extremity edema. Review of Systems Review of Systems: All systems reviewed & are unremarkable except as noted in HPI & below Physical Exam Constitutional: + disheveled Eyes: PERRL, conjunctivae normal, anicteric sclerae ENMT: external ear and nose normal, oropharynx normal Neck: trachea midline, no thyromegaly Respiratory: Auscultation: + crackles (at bases) Cardiovascular: RRR, no murmur, no edema Gastrointestinal (Abdomen): normal bowel sounds, soft, nontender, no hepatosplenomegaly Musculoskeletal: no cyanosis or clubbing, extremities motor strength 5/5 Skin: + lesion (on feet: scaly, vera, greenish small plaques with papules on feet,) Neurologic: PERRL, EOMI, accommodation nl, no face palsy, no dysarthria Psychiatric: A+Ox3, euthymic affect Lymphatic: no cervical or axillary lymphadenopathy Results & Data Results & Data ([facility]) Vital Signs (Past 12 Hours) Vital Signs Temp Pulse Pulse Resp BP Pulse Ox O2 Del Method 10/01/22 20:19 36.8 C 84 19 123/76 94 Nasal Cannula 10/01/22 15:54 36.4 C L 94 H 17 102/66 90 Nasal Cannula 10/01/22 15:00 82 10/01/22 11:46 36.4 C L 81 19 127/79 90 Nasal Cannula 10/01/22 10:36 Nasal Cannula O2 Flow Rate 10/01/22 20:19 4 10/01/22 15:54 3 10/01/22 15:00 10/01/22 11:46 3 10/01/22 10:36 3 PG Care Time/CCT Total # of Minutes Spent Total Time Spent with Patient: Total time spent is greater than 50% in coordination of care (as documented) at patient's floor/unit and/or counseling patient: Coding Level of Care Code 53043 Subseq Hosp Care Lvl 3 Diagnoses Hyponatremia E87.1 Alcoholic cirrhosis K70.30 Fluid overload E87.70 Hypervolemia type: unspecified Elevated troponin I level R77.8 Hypoxia R09.02 Rash R21 Nicotine addiction F17.200 Alcoholism F10.20 Time Spent (min) 35 (1) Fluid overload Hypervolemia type: unspecified Qualified Code(s): E87.70 - Fluid overload, unspecified
--- NOTE | 2022-10-01 21:10 | Orthopedic Consultation ---
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 Reviewed tile-like raised lesions. There is no adjacent erythema or itching noted. Atypical presentation but appears stable. Thank you for allowing me to participate in the care of this Patient. History of Present Illness Attending Physician: Aung Shipley History of Present Illness Patient is a 72-year-old gentleman seen at bedside for bilateral foot rash. Patient was seen in [facility] on 09/29/22 for swelling and shortness of breath. He was admitted for fluid overload and hyponatremia. Patient has no complaints at today's visit. Allergies Allergy/AdvReac Type Severity Reaction Status Date / Time bee venom protein (honey bee) Allergy Hives Verified 09/30/22 21:35 onion Allergy Unknown Verified 09/30/22 21:35 Home Medications Medication Instructions Recorded Confirmed Type No Known Home Medications 09/29/22 09/29/22 History Patient History Medical History No known health problems Surgical History No history of previous surgery Social History Smoking Status: Current every day smoker Hx Alcohol Use: Yes Hx Substance Use: No Preferred Language: Surinamese Communication Ability: Effective Box Stamper Required: No Beliefs That Will Affect Care: None marital status: / Current Living Situation: Family Current Living Situation Comment: lives with brother Feels Safe at Home: Yes Safety Concerns: Feels Safe At This Time Assistive Devices: None Review of Systems Review of Systems: All systems reviewed & are unremarkable except as noted in HPI & below Physical Exam Constitutional: WD/WN, vitals as above Eyes: PERRL, conjunctivae normal, anicteric sclerae ENMT: external ear and nose normal, oropharynx normal Neck: trachea midline, no thyromegaly Cardiovascular: Rate/Rhythm: regular rate and regular rhythm Musculoskeletal: no cyanosis or clubbing, extremities motor strength 5/5 Skin: Bilateral medial rear foot shows multiple raised scaly, vera, tile like plaques Neurologic: Epicritic sensation intact Results & Data ([facility]) Vital Signs (Past 12 Hours) Vital Signs Temp Pulse Pulse Resp BP Pulse Ox O2 Del Method 10/01/22 20:19 36.8 C 84 19 123/76 94 Nasal Cannula 10/01/22 15:54 36.4 C L 94 H 17 102/66 90 Nasal Cannula 10/01/22 15:00 82 10/01/22 11:46 36.4 C L 81 19 127/79 90 Nasal Cannula 10/01/22 10:36 Nasal Cannula O2 Flow Rate 10/01/22 20:19 4 10/01/22 15:54 3 10/01/22 15:00 10/01/22 11:46 3 10/01/22 10:36 3
[2022-10-02] MEDS ORDERED: IVERMECTIN 3 MG TABLET PO SCH (09:00)
[2022-10-02 09:02] LABS: Hematocrit (blood only) 43.5 % (40.1-51.0); Hemoglobin 15.2 g/dl (14.0-18.0); Mean Corpuscular Hemoglobin 35.7 pg (25.0-34.0); Mean Corpuscular Hgb Conc 34.9 g/dL (32.0-36.0); Mean Corpuscular Volume 102.1 fL (80.0-100.0); Mean Platelet Volume 11.5 fL (9.4-12.4); Platelet Count 127 K/uL (130-400); RDW Coefficient of Variation 13.9 % (11.5-14.5); Red Blood Count 4.26 M/uL (4.63-6.08); White Blood Count 5.83 K/ul (4.8-10.8)
[2022-10-02 09:08] LABS: INR 1.3 (0.9-1.1); Prothrombin Time 13.3 Seconds (9.0-12.0)
--- NOTE | 2022-10-02 09:20 | XRay Report ---
XR chest 2V PA/lateral CLINICAL HISTORY: hypoxia TECHNIQUE: 2 views of the chest were obtained. Comparison: Comparison is made to chest radiograph 09/29/2022 FINDINGS: No lines and tubes are seen. The cardiomediastinal silhouette is stable. Reticular interstitial opaci ties are seen. Previously noted pulmonary edema has improved. Faint right lower lobe airspace opacity has improved. Small bilateral pleural effusions are seen. IMPRESSION: 1. Interval improvement in right airspace opacity. Interval improvement in previously noted pulmonar y edema. 2. Stable bilateral pleural effusions. ACT 112: Negative or not required by law. Electronically signed by: Juan Koehler M.D. 10/02/2022 9:19 AM
[2022-10-02 09:27] LABS: Albumin Globulin Ratio 0.8 (0.9-2); Albumin Level 2.8 gm/dl (3.4-5.0); Bilirubin,Total 1.1 mg/dl (0.2-1.0); Calcium 8.8 mg/dl (8.5-10.1); Creatinine Clr Calc Pharmacy 97.6 ml/min; Est GFR (Non-African American) 94.9 ml/min; Globulin 3.7 gm/dl (2.5-4.0); Total Protein 6.5 gm/dl (6.0-8.3)
[2022-10-02] MEDS: POLYETHYLENE (MIRALAX) 17 GM PACK PO SCH ×2 (09:40→20:57)
[2022-10-02] MEDS: SPIRONOLACTONE 100 MG TAB PO SCH (09:41)
[2022-10-02] MEDS: NICOTINE 14 MG/24 HR PATCH TD SCH (09:41)
[2022-10-02] MEDS: HEPARIN SOD 5,000 UNIT/0.5 ML VIAL SQ SCH ×2 (09:41→20:56)
[2022-10-02] MEDS: THIAMINE HCL 100 MG TAB PO SCH (09:41)
[2022-10-02] MEDS: FOLIC ACID 1 MG TAB PO SCH (09:41)
[2022-10-02] MEDS: FUROSEMIDE 40 MG TAB PO SCH (09:41)
--- NOTE | 2022-10-02 10:15 | Gastrointestinal Consultation ---
Date of Consultation October 02, 2022 Assessment & Plan (1) Alcoholism: (2) Alcoholic cirrhosis: (3) Fluid overload: (4) Hyponatremia: Plan 1. I had a long discussion with the patient in regard to ongoing alcohol use in the setting of decompensated cirrhosis. I strongly encouraged the patient to consider complete alcohol abstinence and to be discharged to an inpatient alcohol treatment facility. He he refuses consideration of inpatient alcohol treatment and verbalizes no desire to make any lifestyle changes. States "I had a good life and I will when it is my time to go". 2. Discriminant function 10.5 is less than 32, there is no indication for steroids at this time. 3. Continue alcohol withdrawal protocol, including 1 mg of folic acid and 100 mg of thiamine daily. 4. 2 g sodium restricted diet. 5. Continue Lasix 40 mg and Aldactone 100 mg daily. 6. Await hepatitis serologies as pending. 7. Recommend ongoing outpatient GI follow-up. HCC surveillance and variceal screening can be discussed at that time. Anemic, no need for inpatient endoscopy at this time. Thank you for allowing us to participate in the care of this patient. If you have any questions or concerns, please do not hesitate to contact us. Supervising Physician Co-Signing Physician Notes Agree with ASIYA Fong as above Abd: Soft, NT, ND, +BS, +HSM Continue current therapy and supportive care Advised 100% abstinence from alcohol as it is a known liver toxin Will need chronic disease management of Cirrhosis as outpatient History of Present Illness Reason for Consultation: Cirrhosis Requesting Physician: Dr. Shipley Attending Physician: Aung Shipley History of Present Illness I had the pleasure of seeing Skip Weber today in consultation at the request of Dr. Shipley. As you know, he is a 72-year-old male with a history of alcohol and tobacco abuse admitted with shortness of breath and lower extremity edema. He did have hepatic imaging that demonstrated coarsened echotexture and nodularity consistent with cirrhosis. There was also mild gallbladder wall thickening and biliary ductal dilation likely related to hepatic disease. He does have evidence of synthetic liver dysfunction with an INR of 1.3, sodium 129, bilirubin 1.1. Renal panel was normal. Platelets 127. He was not anemic with an H&H of 15.2 and 43.5%. Liver panel demonstrated an AST of 20, ALT 9, and ALP of 60. The patient reports he has been consuming approximately 6 beers daily for the past 1 year. Prior to this, he reports he was drinking significant amount more of daily beer "as much as I wanted". States he has not received any routine medical care for approximately 20 years. Does have a family history of alcoholic liver disease and is noted to have a brother who from cirrhosis in the past. Hepatitis serologies were ordered by the primary team and are pending. Due to the edema, patient was started on a 2 g sodium restricted diet as well as Lasix 40 mg daily and Aldactone 100 mg daily. The patient is on alcohol withdrawal protocol and started on 1 mg of folic acid in 100 mg of thiamine daily. Discriminant function today is calculated at 10.5. In regard to symptoms, the patient denies any confusion, sleeping difficulties, balance disturbances, tremor, dizziness, chest pain, abdominal pain, pruritus, dark urine, or fatigue. Allergies Allergy/AdvReac Type Severity Reaction Status Date / Time bee venom protein (honey bee) Allergy Hives Verified 09/30/22 21:35 onion Allergy Unknown Verified 09/30/22 21:35 Home Medications Medication Instructions Recorded Confirmed Type No Known Home Medications 09/29/22 09/29/22 History Patient History Medical History No known health problems Surgical History No history of previous surgery Social History Smoking Status: Current every day smoker Hx Alcohol Use: Yes Hx Substance Use: No Preferred Language: Belarusian Communication Ability: Effective Hand Painter Required: No Beliefs That Will Affect Care: None marital status: / Current Living Situation: Family Current Living Situation Comment: lives with brother Feels Safe at Home: Yes Safety Concerns: Feels Safe At This Time Assistive Devices: None Review of Systems Review of Systems: All systems reviewed & are unremarkable except as noted in HPI & below Physical Exam Constitutional: + thin; no acute distress Eyes: + anicteric sclerae and EOM intact bilaterally Neck: normal visual inspection Respiratory: + cough and + tachypneic Auscultation: + rhonchi and + wheezes Cardiovascular: Rate/Rhythm: regular rate and regular rhythm Gastrointestinal (Abdomen): Inspection/Auscultation: + abdomen distended and normal bowel sounds Percussion/Palpation: abdomen soft; abdomen nontender Musculoskeletal: Extremities: + lower extremity abnormal to inspection Bilateral (Edema) Psychiatric: A+Ox3, euthymic affect Results & Data ([facility]) Vital Signs (Past 12 Hours) Vital Signs Temp Pulse Pulse Resp BP Pulse Ox O2 Del Method 10/02/22 09:56 Nasal Cannula 10/02/22 08:21 36.9 C 80 20 122/69 94 Nasal Cannula 10/02/22 07:29 75 10/02/22 03:30 36.6 C 80 19 118/72 95 Nasal Cannula 10/02/22 00:01 82 10/01/22 23:32 36.5 C 90 17 108/69 95 Nasal Cannula O2 Flow Rate 10/02/22 09:56 3 10/02/22 08:21 4 10/02/22 07:29 10/02/22 03:30 4 10/02/22 00:01 10/01/22 23:32 4 Diagnostic Findings Laboratory Results WBC 5.83 K/ul (4.8-10.8) 10/02/22 08:15 RBC 4.26 M/uL (4.63-6.08) L 10/02/22 08:15 Hgb 15.2 g/dl (14.0-18.0) 10/02/22 08:15 Hct 43.5 % (40.1-51.0) 10/02/22 08:15 MCV 102.1 fL (80.0-100.0) H 10/02/22 08:15 MCH 35.7 pg (25.0-34.0) H 10/02/22 08:15 MCHC 34.9 g/dL (32.0-36.0) 10/02/22 08:15 RDW Std Deviation 52.0 fL (36.4-46.3) H 10/02/22 08:15 RDW Coeff of Gail 13.9 % (11.5-14.5) 10/02/22 08:15 Plt Count 127 K/uL (130-400) L 10/02/22 08:15 MPV 11.5 fL (9.4-12.4) 10/02/22 08:15 Immature Gran % (Auto) 0.3 % 09/29/22 14:41 Neut % (Auto) 74.4 % 09/29/22 14:41 Lymph % (Auto) 12.6 % 09/29/22 14:41 [place] % (Auto) 11.0 % 09/29/22 14:41 Eos % (Auto) 0.5 % 09/29/22 14:41 Baso % (Auto) 1.2 % 09/29/22 14:41 Neut # (Auto) 4.92 K/uL (1.4-6.5) 09/29/22 14:41 Lymph # (Auto) 0.83 K/uL (1.2-3.4) L 09/29/22 14:41 [place] # (Auto) 0.73 K/uL (0.24-0.82) 09/29/22 14:41 Eos # (Auto) 0.03 K/uL (0-0.50) 09/29/22 14:41 Baso # (Auto) 0.08 K/uL (0-0.2) 09/29/22 14:41 Immature Gran # (Auto) 0.02 K/uL (0.00-0.02) 09/29/22 14:41 PT 13.3 Seconds (9.0-12.0) H 10/02/22 08:15 INR 1.3 (0.9-1.1) H 10/02/22 08:15 Sodium 129 mmol/L (136-145) L 10/02/22 08:15 Potassium 4.0 mmol/L (3.5-5.1) 10/02/22 08:15 Chloride 86 mmol/L (98-107) L 10/02/22 08:15 Carbon Dioxide 42 mmol/L (21-32) H* 10/02/22 08:15 Anion Gap 1 (3-11) L 10/02/22 08:15 BUN 14 mg/dl (6-23) 10/02/22 08:15 Creatinine 0.70 mg/dl (0.6-1.4) 10/02/22 08:15 Est Cr Clr Drug Dosing 97.6 ml/min 10/02/22 08:15 Est GFR ( Amer) 110.0 ml/min 10/02/22 08:15 Est GFR (Non-Af Amer) 94.9 ml/min 10/02/22 08:15 BUN/Creatinine Ratio 20.0 (10-20) 10/02/22 08:15 Glucose 97 mg/dl (70-99(Fasting)) 10/02/22 08:15 Lactate 1.9 mmol/L (0.4-2.0) 09/29/22 14:41 Calcium 8.8 mg/dl (8.5-10.1) 10/02/22 08:15 Magnesium 1.9 mg/dl (1.7-2.4) 09/29/22 14:41 Total Bilirubin 1.1 mg/dl (0.2-1.0) H 10/02/22 08:15 AST 20 U/L (13-39) 10/02/22 08:15 ALT 9 U/L (7-52) 10/02/22 08:15 Alkaline Phosphatase 60 U/L (34-104) 10/02/22 08:15 Troponin I High Sens 77.7 pg/ml (0-20) H* 09/30/22 10:38 B-Natriuretic Peptide 1989 pg/ml (0-100) H 09/29/22 14:41 Total Protein 6.5 gm/dl (6.0-8.3) 10/02/22 08:15 Albumin 2.8 gm/dl (3.4-5.0) L 10/02/22 08:15 Globulin 3.7 gm/dl (2.5-4.0) 10/02/22 08:15 Albumin/Globulin Ratio 0.8 (0.9-2) L 10/02/22 08:15 Folate 11.96 ng/ml (>5.38) 09/30/22 07:01 TSH 3.831 uIu/ml (0.300-4.500) 09/29/22 14:41 Urine Color Yellow 09/29/22 17:05 Urine Appearance Clear (Clear) 09/29/22 17:05 Urine pH 5.5 (4.5-7.5) 09/29/22 17:05 Ur Specific [employer] 1.010 (1.000-1.030) 09/29/22 17:05 Urine Protein Negative (Negative) 09/29/22 17:05 Urine Glucose (UA) Negative (Negative) 09/29/22 17:05 Urine Ketones Negative (Negative) 09/29/22 17:05 Urine Blood Negative (Negative) 09/29/22 17:05 Urine Nitrite Negative (Negative) 09/29/22 17:05 Urine Bilirubin Negative (Negative) 09/29/22 17:05 Urine Urobilinogen Negative (Negative) 09/29/22 17:05 Ur Leukocyte Esterase Negative (Negative) 09/29/22 17:05 Ethyl Alcohol mg/dL < 10.0 mg/dl (<10.0) 09/29/22 14:41 SARS-CoV-2, RNA, NAAT NEGATIVE (NEGATIVE) 09/29/22 14:52 Impressions Liver Ultrasound 09/30/22 06:45 US liver CLINICAL HISTORY: chronic alcoholism/edema COMPARISON STUDY: No previous studies for comparison. FINDINGS: There is coarsening of hepatic echotexture and nodularity of the liver surface. Main portal vein is patent. No hepatic lesions are identified although this exam is compromised by suboptimal penetration. There is mild dilatation of the common bile duct, measuring 8 mm. No gallstones are noted. No sonographic Jackson sign was reported. Pancreatic body is normal. Head and tail are obscured. There is no right hydronephrosis. Small right pleural effusion is incidentally noted. IMPRESSION: 1. No gallstones. Gallbladder wall thickening, a nonspecific finding the setting of cirrhosis. 2. Coarsening of hepatic echotexture and nodularity of the liver surface suggestive of cirrhosis. 3. Mild dilatation of the common bile duct which be correlated with liver function tests. 4. Small right pleural effusion. ACT 112: Negative or not required by law. Electronically signed by: Corey Madrid M.D. 09/30/2022 12:13 PM Chest X-Ray 10/02/22 08:10 XR chest 2V PA/lateral CLINICAL HISTORY: hypoxia TECHNIQUE: 2 views of the chest were obtained. Comparison: Comparison is made to chest radiograph 09/29/2022 FINDINGS: No lines and tubes are seen. The cardiomediastinal silhouette is stable. Reticular interstitial opacities are seen. Previously noted pulmonary edema has improved. Faint right lower lobe airspace opacity has improved. Small bilateral pleural effusions are seen. IMPRESSION: 1. Interval improvement in right airspace opacity. Interval improvement in previously noted pulmonary edema. 2. Stable bilateral pleural effusions. ACT 112: Negative or not required by law. Electronically signed by: Juan Koehler M.D. 10/02/2022 9:19 AM PG Care Time/CCT Total # of Minutes Spent Total Time Spent with Patient: Total time spent is greater than 50% in coordination of care (as documented) at patient's floor/unit and/or counseling patient: Coding Level of Care Code 77091 Initial Inpt Care Lvl 3 Diagnoses Alcoholism F10.20 Alcoholic cirrhosis K70.30 Fluid overload E87.70 Hypervolemia type: unspecified Hyponatremia E87.1 (1) Fluid overload Hypervolemia type: unspecified Qualified Code(s): E87.70 - Fluid overload, unspecified
[2022-10-02 15:02] LABS: HBSAG NON-REACTIVE (NON-REACTIVE); Hepatitis A Antibody IgM NON-REACTIVE (NON-REACTIVE); Hepatitis B Core Antibody IgM NON-REACTIVE (NON-REACTIVE)
--- NOTE | 2022-10-02 20:14 | Hospitalist Progress Note ---
Date of Service October 02, 2022 Assessment & Plan (1) Hyponatremia: Plan: Patient admited with fluid overload and hyponatremia. Hypervolemic hyponatremia serum sodium is improved from 129 to 132 with diuresis Continue loop diuretics and monitor serum sodium along with electrolytes daily Has signs of liver injury given his elevated INR: 1.3 Does not require prednisolone at this moment. Patient on alcohol withdrawal protocol with close monitoring for withdrawal s ymptoms will continue to monitor, patient remains over 2 liters negative per day. will add spironolactone on 10/01 Patient is tolerating his diuretics, awaiting input from GI Anticipate discharge once patient is close to room air and sodium has normalized. (2) Alcoholic cirrhosis: Plan: Given extensive alcohol use, elevated INR, elevated bilirubin. will consult GI to establish patient and determine need for upper endoscopy to assess for varices. Patient does not meet criteria for prednisolone (3) Fluid overload: Plan: as above, diurese with lasix added spirinolactone with lasix on 10/01/22 (4) Elevated troponin I level: Plan: demand ischemia No evidence of ongoing ischemia noted Patient presents with elevated proBNP over 1800 (5) Hypoxia: Plan: supplemental oxygen ordered (6) Rash: Plan: Concern over scabies, discussed with podiatry. 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 Patient no longer needs to be on precautions. consulted podiatry for further assistance (7) Nicotine addiction: Plan: will order 14 mg of nicotine patch (8) Alcoholism: Plan: Patient placed on alcohol withdrawal protocol with folic acid and thiamine supplementation Patient is not interested in alcohol rehab. will try to quit drinking on his own. Admission and Anticipated Discharge Date Admission Date: September 29, 2022 Subjective 72 yo male reports feeling well. He has no new complaints. Review of Systems Review of Systems: All systems reviewed & are unremarkable except as noted in HPI & below Physical Exam Constitutional: + disheveled Eyes: PERRL, conjunctivae normal, anicteric sclerae ENMT: external ear and nose normal, oropharynx normal Neck: trachea midline, no thyromegaly Respiratory: Auscultation: + crackles (at bases) Cardiovascular: RRR, no murmur, no edema Gastrointestinal (Abdomen): normal bowel sounds, soft, nontender, no hepat osplenomegaly Musculoskeletal: no cyanosis or clubbing, extremities motor strength 5/5 Skin: + lesion (on feet: scaly, vera, greenish small plaques with papules on feet,) Neurologic: PERRL, EOMI, accommodation nl, no face palsy, no dysarthria Psychiatric: A+Ox3, euthymic affect Lymphatic: no cervical or axillary lymphadenopathy Results & Data Results & Data ([facility]) Vital Signs (Past 12 Hours) Vital Signs Temp Pulse Pulse Resp BP Pulse Ox O2 Del Method 10/02/22 19:15 36.7 C 90 20 116/72 88 L Nasal Cannula 10/02/22 15:24 36.7 C 85 20 117/72 91 Nasal Cannula 10/02/22 15:23 80 10/02/22 11:08 36.3 C L 77 20 124/78 97 Nasal Cannula 10/02/22 09:56 Nasal Cannula 10/02/22 08:21 36.9 C 80 20 122/69 94 Nasal Cannula O2 Flow Rate 10/02/22 19:15 2 10/02/22 15:24 2 10/02/22 15:23 10/02/22 11:08 2 10/02/22 09:56 3 10/02/22 08:21 4 PG Care Time/CCT Total # of Minutes Spent Total Time Spent with Patient: Total time spent is greater than 50% in coordination of care (as documented) at patient's floor/unit and/or counseling patient: Coding Level of Care Code 80667 Subseq Hosp Care Lvl 3 Diagnoses Hyponatremia E87.1 Alcoholic cirrhosis K70.30 Fluid overload E87.70 Hypervolemia type: unspecified Elevated troponin I level R77.8 Hypoxia R09.02 Rash R21 Nicotine addiction F17.200 Alcoholism F10.20 (1) Fluid overload Hypervolemia type: unspecified Qualified Code(s): E87.70 - Fluid overload, unspecified
[2022-10-03] MEDS: HEPARIN SOD 5,000 UNIT/0.5 ML VIAL SQ SCH (08:41)
[2022-10-03] MEDS: POLYETHYLENE (MIRALAX) 17 GM PACK PO SCH (08:42)
[2022-10-03] MEDS: SPIRONOLACTONE 100 MG TAB PO SCH (08:42)
[2022-10-03] MEDS: FUROSEMIDE 40 MG TAB PO SCH (08:42)
[2022-10-03] MEDS: NICOTINE 14 MG/24 HR PATCH TD SCH (08:42)
[2022-10-03] MEDS: FOLIC ACID 1 MG TAB PO SCH (08:42)
[2022-10-03] MEDS: THIAMINE HCL 100 MG TAB PO SCH (08:43)
[2022-10-03 09:29] LABS: INR 1.2 (0.9-1.1)
[2022-10-03 09:48] LABS: Albumin Globulin Ratio 0.8 (0.9-2); BUN Creatinine Ratio 16.4 (10-20); Bilirubin,Total 1.1 mg/dl (0.2-1.0); Calcium 9.2 mg/dl (8.5-10.1); Est GFR (African American) 108.2 ml/min; Est GFR (Non-African American) 93.3 ml/min; Globulin 3.9 gm/dl (2.5-4.0); Total Protein 6.9 gm/dl (6.0-8.3)
[2022-10-03 09:58] LABS: Hematocrit (blood only) 46.2 % (40.1-51.0); Mean Corpuscular Hemoglobin 34.9 pg (25.0-34.0); Mean Corpuscular Hgb Conc 34.6 g/dL (32.0-36.0); Mean Corpuscular Volume 100.9 fL (80.0-100.0); Mean Platelet Volume 11.2 fL (9.4-12.4); Platelet Count 129 K/uL (130-400); Red Blood Count 4.58 M/uL (4.63-6.08); White Blood Count 6.12 K/ul (4.8-10.8)
--- NOTE | 2022-10-03 10:38 | XRay Report ---
XR chest 2V PA/lateral CLINICAL HISTORY: hypoxia/ pleural effusions TECHNIQUE: 2 views of the chest were obtained. Comparison: Comparison is made to chest radiograph 10/02/2022 FINDINGS: No lines and tubes are seen. Cardiomegaly is noted. Reticular interstitial opacities are seen. Small bilateral pleural effusions are seen. IMPRESSION: Stable small bilateral pleural effusions. Interstitial opacities and cardiomegaly are unchanged. ACT 112: Negative or not required by law. Electronically signed by: Juan Koehler M.D. 10/03/2022 10:36 AM
[2022-10-03] MEDS ORDERED: PERMETHRIN 5% CR 60 GM TUBE EXT SCH (11:30)
--- NOTE | 2022-10-10 12:16 | Discharge Summary ---
Date of Service October 03, 2022 Admission HPI Per Admitting Provider This is a pleasant 74 yo male who is an alcoholic. Patient has not seen a provider for almost 10 years. Patient has Past social history of: drinking 6 cans of beer every day for past 15 days without stopping. He reports prior to this, he has been able to stop without going through withdrawal. Patient also reports having a over 50 pack year history of smoking cigarettes. Patient states his brother of alcoholic cirrhosis. Patient arrives to the hospital as he noticed worsening of his lower extremity edema with SOB. Principal Diagnosis hyponatremia/ alcoholic cirrhosis Discharge Exam Constitutional well developed Eyes PERRL, conjunctivae normal, anicteric sclerae ENMT external ear and nose normal, oropharynx normal Neck trachea midline, no thyromegaly Respiratory Auscultation: + crackles (at bases) Cardiovascular RRR, no murmur, no edema Gastrointestinal (Abdomen) normal bowel sounds, soft, nontender, no hepatosplenomegaly Musculoskeletal no cyanosis or clubbing, extremities motor strength 5/5 Skin + lesion (on feet: scaly, vera, greenish small plaques with papules on feet,) Neurologic PERRL, EOMI, accommodation nl, no face palsy, no dysarthria Psychiatric A+Ox3, euthymic affect Lymphatic no cervical or axillary lymphadenopathy Discharge Data Allergies Allergy/AdvReac Type Severity Reaction Status Date / Time bee venom protein (honey bee) Allergy Hives Verified 09/30/22 21:35 onion Allergy Unknown Verified 09/30/22 21:35 Consultations 09/29/22 15:37 ED Decision to Admit Stat 10/01/22 17:18 Consult Podiatry Routine 10/01/22 17:24 Consult Gastroenterology Routine Ordered Studies 09/30/22 06:45 US RUQ [US liver] Routine Hospital Course (1) Hyponatremia: Patient admitted with fluid overload and hyponatremia. Hypervolemic hyponatremia serum sodium is improved from 129 to 132 with diuresis Continue loop diuretics and monitor serum sodium along with electrolytes daily Has signs of liver injury given his elevated INR: 1.3 Does not require prednisolone at this moment given low Maddrey score. Patient on alcohol withdrawal protocol with close monitoring for withdrawal symptoms will continue to monitor, patient remains over 2 liters negative per day. Ordered 2 step and will require 2 liters nasal cannula at rest amd 3 liters on ambulation. will discharge on spirinolactone and lasix 100/40 mg combination. May require rechecking Patient is tolerating his diuretics, will followup with GI as an outpatient. Appreiciate input from GI (2) Alcoholic cirrhosis: Given extensive alcohol use, elevated INR, elevated bilirubin. will consult GI to establish patient and determine need for upper endoscopy to assess for varices. Patient does not meet criteria for prednisolone (3) Fluid overload: as above, diurese with lasix added spirinolactone with lasix on 10/01/22 (4) Elevated troponin I level: demand ischemia No evidence of ongoing ischemia noted Patient presents with elevated proBNP over 1800 (5) Hypoxia: supplemental oxygen ordered (6) Rash: Concern over scabies, discussed with podiatry. 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 Patient no longer needs to be on precautions. consulted podiatry for further assistance (7) Nicotine addiction: will order 14 mg of nicotine patch (8) Alcoholism: Patient placed on alcohol withdrawal protocol with folic acid and thiamine supplementation Patient is not interested in alcohol rehab. will try to quit drinking on his own. Acute right heart CHF in the setting of alcoholism and hepatic failure Improved with diuresis. appears resolved Given his extensive smoking history of over 50 pack year. Patient has COPD, will need to obtain a pulmonary function test at discharge. Patient will require oxygen on ambulation 3 liters and at rest 2 liters. Total Time Total Time Spent Total Time Spent (In Minutes): 35 Discharge Plan Discharge Items Patient Disposition: Home - Self-Care Reason For Visit: HYPOXIA Discharge Diagnosis: hypoxia Activity: Resume your previous activity Non-emergency contact: Primary Care Provider Call non-emergency contact if: you have any medication questions Follow-up/Referrals: Letitia Garcia CRNP [Nurse Practitioner] - 10/11/22 1:20 pm (Please arrive 15 minutes prior to appointment time. If you need to reschedule this appointment please call the office at [phone]. ) Donn Brewster M.D. [Primary Care Provider] - Rocío Santamaria MD [Outside Practitioners] - 10/05/22 12:00 pm (This is a new patient/ hospital follow up visit. Please arrive 15 prior to appointment time. Office asks that you please bring your ID and insurance card.) Diet: Low Sodium (2gm) Addtl Attending Provider Instructions: 1. I strongly encourage you reconsider completing alcohol abstinence and to be discharged to an inpatient alcohol treatment facility. Please abstain from drinking alcohol as you will get sicker if you do.. 2. 2 g sodium restricted diet. 3. Continue Lasix 40 mg and Aldactone 100 mg daily. Recommend ongoing outpatient GI follow-up. Pending Studies at Discharge: No Stand-Alone Forms: My [facility], Smoking Cessation Medications and DC Order Prescriptions: New furosemide 40 mg Tablet 40 mg PO QAM Qty: 30 0RF spironolactone 100 mg Tablet 100 mg PO QAM Qty: 30 0RF thiamine HCl (vitamin B1) 100 mg Tablet 100 mg PO QAM Qty: 30 0RF folic acid 1 mg Tablet 1 mg PO QAM Qty: 30 0RF No Action No Known Home Medications Discharge Orders: Discharge Order (Routine); Ordered 10/03/22 Ordered By: Aung James/Other Patient Handouts: Treating Cirrhosis, Understanding Cirrhosis, Cirrhosis of Liver Dc, ED Cirrhosis Admission Data Admit Date/Time: 09/29/22 15:47 Attending Provider: Aung Shipley Admit Provider: Aung Shipley Primary Care Provider: Donn Brewster Other Providers: Aung Shipley ; Paola Connelly ; Cedric Lester ; Letitia Garica ; Comfort Main ; Joanne Nice ; Rowena Rolle ; Miles Garcia ; Yelena Moody ; Jere Esparza ; Gissel Junior ; Adiel Salamanca ; Kevin Tubbs ; Laya Finch ; Gisell Poole ; Brenda Dave ; Camilla Upton ; Sai Bragg ; Seth Boyle ; Jamie Cates ; Samantha Melo ; Ewa Laird Jr ; Franklin Bonilla Other Interventions: Discharge Summary Assessment (RN) Last Done: 10/03/22 16:57 Coding Level of Care Code D/C DAY MANAGEMENT >30 MINS Diagnoses Hyponatremia E87.1 Alcoholic cirrhosis K70.30 Fluid overload E87.70 Hypervolemia type: unspecified Elevated troponin I level R77.8 Hypoxia R09.02 Rash R21 Nicotine addiction F17.200 Alcoholism F10.20
== END 2022-10-03 18:24 | disposition home or self-care (01) | DRG 433 ==
LOC: ED 14:03 → 4W 15:47 → SUATTDRO 15:47 → 4W 18:31